=== PATIENT | female | born 1990 | race Asian ===

== ENCOUNTER → 2021-01-21 16:52 | Outpatient (ROUT) | payer OTHER, SELFPAY ==
[2021-01-21 17:15] LABS: GTT (PREG) 1 Hour PP 50gm Dose 124 mg/dL (76-139)
== END ==
PROVIDERS: Visit Provider Nurse Practitioner Obstetrics & Gynecology
DX: Z34.90 Encounter for supervision of normal pregnancy, unspecified, unspecified trimester (principal); Z13.1 Encounter for screening for diabetes mellitus; Z3A.16 16 weeks gestation of pregnancy
CPT/HCPCS: 82950

== ENCOUNTER → 2021-02-03 12:05 | Outpatient (CLI) | payer OTHER, SELFPAY ==
--- NOTE | 2021-02-03 | DI.US.S_ITS ---
PROCEDURE: US OB >= 14 WEEKS FETUS INDICATIONS: ANATOMY SCAN OUTSIDE/PRIOR DATING DATA: Last menstrual period (LMP): 09/22/20. LMP-based estimated date of delivery (CHAU): 07/09/21 . First dating scan (date and location): 02/03/21 . Estimated date of delivery (CA[facility]) from first dating scan: 06/28/21 . TECHNIQUE: Real-time scanning was performed of the fetus, with image documentation and biometric measurements. Endovaginal scanning: Not needed COMPARISON: None. FINDINGS: General: A single living intrauterine gestation is present. Presentation: Transverse head left. Placenta: Placental position is posterior , without previa. Amniotic fluid index: 13.6 cm, normal range is 5-24 cm. heart rate: 158 beats per minute. Maternal cervical canal: 3.8 cm long. Normal lower limit is 2.5 cm. biometrics: Biparietal diameter: 4.5 cm, 19 weeks 3 days Head circumference: 16.6 cm, 19 weeks 2 days Abdominal circumference: 13.5 cm, 19 weeks 0 days Femur length: 3.0 cm, 19 weeks 2 days Estimated gestational age from initial scan: Not applicable Composite gestational age from present scan: 19 weeks Estimated weight and percentile: 276 g, 45th percentile. Measurement variability for biometric dating: +/- 7 days from 14 weeks to 15 weeks 6 days gestation, +/- 10 days from 16 weeks to 21 weeks 6 days gestation, +/- 2 weeks from 22 weeks to 27 weeks 6 days gestation, +/- 3 weeks for 28 weeks gestation or later. weight reference: 4500 g or EFW >90/95% is considered macrosomia or large for gestational age. EFW <10% is small for gestational age. EFW 5% or less is considered intra-uterine growth restriction. Anatomic survey: Neuro: Ventricles are non-dilated at less than 10 mm. Cisterna magna is normal at 3-11 mm. Cerebellum is normal in size and morphology. Nuchal skin fold: Normal at less than 6 mm between 14-21 weeks gestational age. Face: Nose and lips, facial profile are normal. Spine: No evidence for spina bifida. Heart: 4-chambered heart is present, with normal ventricular outflow tracts. Diaphragm: Diaphragm is intact. Stomach: Left-sided stomach is present. Kidneys: No hydronephrosis. Normal is less than 5 mm in 2nd trimester, less than 7 mm in 3rd trimester. Cord: 3-vessel cord has orthotopic insertion. Bladder: Normal in size. Extremities: All 4 extremities identified. IMPRESSION: 19 week 2 day gestational age with delivery date projected to be centered on 07/08/21, +/-10 days. Normal survey of anatomy. Current presentation is transverse, head to maternal left. Dictated by: Delfino Mondragon M.D. on 02/03/2021 at 14:44 Approved by: Delfino Mondragon M.D. on 02/03/2021 at 14:47
== END ==
PROVIDERS: Referring Provider Nurse Practitioner Obstetrics & Gynecology; Visit Provider Nurse Practitioner Obstetrics & Gynecology
DX: Z36.89 Encounter for other specified antenatal screening (principal); Z3A.19 19 weeks gestation of pregnancy
CPT/HCPCS: 76811

== ENCOUNTER → 2021-03-25 15:59 | Outpatient (CLI) | payer OTHER, SELFPAY ==
[2021-03-25 18:09] LABS: Add Manual Diff / Slide Review NO; Basophils Absolute Auto 0 /uL (0-100); Basophils Percent Auto 0.2 % (0-2); Eosinophils Absolute Auto 200 /uL (0-450); Eosinophils Percent Auto 1.3 % (2-4); Hematocrit 33.7 % (36-46); Hemoglobin 11.3 g/dL (12.0-16.0); Lymphocytes Absolute Auto 1700 /uL (1100-4500); Lymphocytes Percent Auto 14.2 % (25-40); Mean Corpuscular HGB Conc 33.6 % (30-36); Mean Corpuscular Volume 92.4 fL (80-100); Monocytes Absolute Auto 600 /uL (0-900); Monocytes Percent Auto 5.2 % (3-14); Neutrophils Absolute Auto 9500 /uL (1500-7000); Neutrophils Percent Auto 79.1 % (50-75); Platelet Count 198 X10^3/uL (150-400); Red Blood Cell Count 3.65 X10^6/uL (4.0-5.2); Red Cell Distribution Width 13.4 % (11.6-14.8)
[2021-03-25 18:32] LABS: GTT (PREG) 1 Hour PP 50gm Dose 116 mg/dL (76-139)
== END ==
PROVIDERS: PCP Nurse Practitioner Obstetrics & Gynecology; Referring Provider Nurse Practitioner Obstetrics & Gynecology; Visit Provider Nurse Practitioner Obstetrics & Gynecology
DX: Z34.90 Encounter for supervision of normal pregnancy, unspecified, unspecified trimester (principal); Z13.1 Encounter for screening for diabetes mellitus; Z3A.26 26 weeks gestation of pregnancy
CPT/HCPCS: 36415; 82950; 85025

== ENCOUNTER → 2021-06-02 20:21 | Outpatient (ROUT) | payer OTHER, SELFPAY | PROVIDERS: PCP Nurse Practitioner Obstetrics & Gynecology; Visit Provider Nurse Practitioner Obstetrics & Gynecology | DX: Z34.90 Encounter for supervision of normal pregnancy, unspecified, unspecified trimester (principal); Z36.85 Encounter for antenatal screening for Streptococcus B; Z3A.36 36 weeks gestation of pregnancy | CPT/HCPCS: 87081 ==

== ENCOUNTER 2021-07-05 21:18 | Inpatient (IN) | payer OTHER, SELFPAY ==
--- NOTE | 2021-07-05 21:28 | P.HPOB_ITS ---
OB HPI Date/Time Date of admission: 07/05/21 Date Patient Seen: 07/05/21 Time Patient Seen: 21:28 History of Present Condition Chief complaint: : 2 Para: 1 Estimated Date of Delivery: 06/28/21 Estimated Gestational Age (weeks): 41 Narrative: Judy Scott is a 31 year old female at 41 weeks 0 days by LMP and first trimester US. Contractions began early this morning, occurring every 10 minutes. Contractions increased in frequency and intensity around 2030. + FM, no LOF or VB. Coping well and desires low intervention unmedicated . Uncomplicated care with CNM. History of Present care: good care, initiated at week # (8), number of visits (12) and pounds weight gain (40) Dating criteria: LMP confirmed by 1st trimester US Ultrasounds: normal mid trimester US Obstetrical complications: none Medical complications: none Preadmission Labs Blood type: A (+) positive -: Antibody screen: negative, GBS status: negative, HBsAG: negative, HIV: negative and RPR/VDLR: negative -: Chlamydia screen: not detected and Gonorrhea screen: not detected -: Rubella: immune HCT: 33.7 HCAB: negative 1 hr GTT: 116 Prior (ies) History: NSVB @ 40 weeks 3 days 12/14/17 Evaluation Evaluation Baseline heart rate: 155 Variability: Moderate (11-25) monitor accelerations: Present Monitor Decelerations: Absent Contraction Frequency (minutes): 4 Uterine Contraction Intensity: Strong/Firm Status: Category l Cervical dilation (cm): 7 Cervical effacement (%): 80 station: -3 [facility] Medical History (Updated 07/05/21 @ 22:13 by Larisa Jacobs CNM) Hemorrhoids Surgical History (Updated 07/05/21 @ 22:13 by Larisa Jacobs CNM) H/O ovarian cystectomy Meds Home Medications and Allergies Home Medications Medication Instructions Recorded Confirmed Type vits no.60-ferrous 1 tab BID 07/05/21 07/05/21 History fumarate 27 mg iron-folic acid 1 mg tablet Allergies Allergy/AdvReac Type Severity Reaction Status Date / Time No Known Drug Allergies Allergy Verified 07/05/21 22:25 Review of Systems Review of Systems ROS: Yes All systems reviewed with the patient and are negative except as otherwise documented Exam Vital Signs (past 8 hours): BP 145/78, T 97.6F, HR 86 bpm Resp Effort & Inspection: normal respiratory effort Auscultation: clear to auscultation bilaterally Cardio Rate: regular rate Rhythm: regular rhythm Heart Sounds: S1 normal and S2 normal Presentation: vertex Assessment and Plan Assessment and Plan Assessment and Plan narrative: A: Late term primipara active labor Elevated BP without diagnosis of hypertension No indication for GBS prophylaxis FHR Cat I P: Admit to L&D. Will draw pre-ecclapmsia panel with admission labs for elevated BP readings on admission. Intermittent auscultation per protocol. TENS unit provided for analgesia, will provide labor support as needed. Plan to reassess in 4 hours.
[2021-07-05 23:07] LABS: Add Manual Diff / Slide Review NO; Basophils Absolute Auto 100 /uL (0-100); Basophils Percent Auto 0.5 % (0-2); Eosinophils Absolute Auto 100 /uL (0-450); Eosinophils Percent Auto 1.3 % (2-4); Hematocrit 34.4 % (36-46); Hemoglobin 11.3 g/dL (12.0-16.0); Lymphocytes Absolute Auto 1600 /uL (1100-4500); Lymphocytes Percent Auto 14.4 % (25-40); Mean Corpuscular HGB Conc 32.8 % (30-36); Mean Corpuscular Hemoglobin 27.3 PG (26-34); Mean Corpuscular Volume 83.3 fL (80-100); Monocytes Absolute Auto 800 /uL (0-900); Monocytes Percent Auto 7.1 % (3-14); Neutrophils Absolute Auto 8400 /uL (1500-7000); Neutrophils Percent Auto 76.7 % (50-75); Platelet Count 200 X10^3/uL (150-400); Red Blood Cell Count 4.13 X10^6/uL (4.0-5.2); Red Cell Distribution Width 16.6 % (11.6-14.8); White Blood Cell Count 10.9 X10^3/uL (4.5-11.0)
[2021-07-05 23:17] LABS: Aspartate Aminotransferase 35 IU/L (14-36); BUN Creatinine Ratio 17.7 (6-22); Blood Urea Nitrogen 11 mg/dL (7-17); Estimated Glomerular Filt Rate > 60.0 mL/min (>60); Uric Acid 4.3 mg/dL (2.5-6.2)
[2021-07-05 23:29] VITALS: BP 131/76
[2021-07-05 23:31] LABS: COVID19 - ADMIT (NP swab/PCR) Negative (Negative)
--- NOTE | 2021-07-06 02:35 | PM.OBPRVD ---
Events: Meconium Stained Fluid Labor & Delivery Delivery date: 07/06/21 Intrapartal Events: None Cervical ripening method: none Induction method: none Delivery monitor: external FHT and external uterine Route of delivery: Episiotomy description: None L&D Laceration Description: None Estimated blood loss (mL): 325 Anesthesia Type: None Narrative: Judy labored in a variety of positions. Had spontaneous urge to push with bearing down efforts at 0130. FHT remained reassuring by intermittent auscultation throughout second stage. Requested nitrous oxide for pain management, provided adequate pain relief during pushing. Delivery of vigorous male at 0213, membranes ruptured with delivery of head, light meconium-stained fluid. No nuchal cord, shoulders delivered with ease, no additional maneuvers needed. PORFIRIO with left compound hand, manually reduced. [place] placed skin to skin, Apgars 8/9. After slowing of pulsations and signs of placental separation, cord double cut and clamped by SNM. Gentle cord traction and IV Pitocin per protocol for AMTSL, delivery of intact [place] presentation placenta at 0218 with three vessel cord. Perineum intact. QBL 325. Judy and baby left skin to skin and in stable condition as I left the room. Baby 1: Infant gender: Male Presentation: vertex Position: Right Occiput Anterior (with compound left hand, manually reduced) Placenta delivery description: Spontaneous Cord Vessel Description: 3 Vessels score (1 min): 8 score (5 min): 9 weight: 3.456 kg Plan for aftercare: Routine care
[2021-07-06] MEDS: ACETAMINOPHEN 325 MG TABLET 650 MG PO (03:01)
[2021-07-06] MEDS: KETOROLAC 30 MG/ML VIAL IV (03:01)
--- NOTE | 2021-07-06 15:09 | PM.OBDS.1 ---
Discharge Providers Provider Date of admission: 07/05/21 21:18 Discharge Date: 07/06/21 Primary care physician: Larisa Jacobs CNM Consults: 07/07/21 02:34 Consult to Academic Success Coordinator Routine Comment: Discharge provider: Larisa Jacobs CNM Summary Hospital Course Date Patient Seen: 07/06/21 Time Patient Seen: 15:09 Diagnoses: o80 Hospital Course: 13 hours s/p NSVBShila Kim is voiding, ambulating and independently. Tolerating a general diet. Denies pain and declines PO pain medication. Bleeding is decreasing without clots. Eager for discharge to home MAAME. remains present and supportive. Peripartum Data Delivery Method: Natural Vaginal Laceration Description: None complications: none [place] 1: Gender: Male Disposition of : home Discharge Diagnosis (1) Encounter for full-term uncomplicated delivery: Start Date: 07/06/21 Start Time: 02:13 Status: Acute Status at Discharge Cognitive/behavioral status at discharge: oriented and calm Functional status at discharge: independent ambulation Time Spent with Patient Time attestation: Total time spent providing and/or coordinating discharge services: Time spent: Less than 30 minutes Objective Labs Result Diagrams: 07/05/21 22:57 07/05/21 22:57 Labs: Laboratory Results - last 24 hr 07/05/21 07/05/21 07/05/21 22:29 22:57 22:57 WBC 10.9 RBC 4.13 Hgb 11.3 L Hct 34.4 L MCV 83.3 MCH 27.3 MCHC 32.8 RDW 16.6 H Plt Count 200 Neut % (Auto) 76.7 H Lymph % (Auto) 14.4 L [place] % (Auto) 7.1 Eos % (Auto) 1.3 L Baso % (Auto) 0.5 Neut # (Auto) 8400 H Lymph # (Auto) 1600 [place] # (Auto) 800 Eos # (Auto) 100 Baso # (Auto) 100 BUN Creatinine Estimated GFR BUN/Creatinine Ratio Uric Acid AST SARS-CoV-2 (PCR) Negative Blood Type A Positive Antibody Screen Negative 07/05/21 22:57 WBC RBC Hgb Hct MCV MCH MCHC RDW Plt Count Neut % (Auto) Lymph % (Auto) [place] % (Auto) Eos % (Auto) Baso % (Auto) Neut # (Auto) Lymph # (Auto) [place] # (Auto) Eos # (Auto) Baso # (Auto) BUN 11 Creatinine 0.62 Estimated GFR > 60.0 BUN/Creatinine Ratio 17.7 Uric Acid 4.3 AST 35 SARS-CoV-2 (PCR) Blood Type Antibody Screen Exam Vital Signs (past 8 hours): BP 126/77mmHg, HR 101bpm, T 36.7C Temporal Other: Fundus firm @ u-1, lochia moderate, no clots. Perineum intact with minimal edema. Discharge Plan Discharge Plan Patient Disposition: Home Discharge orders & Medications Prescriptions: Continued PNV Folic Acid + Iron 27 mg iron- 1 mg Tablet 1 tab BID RF: 0 Follow up/Referrals: Larisa Jacobs CNM [Primary Care Provider] - (Follow-up by telehealth 07/19/21 @ 0930 Follow-up in office 08/16/21 @ 1000) Diet/Activity/Treatments Diet: Regular Activity: pelvic rest x 6 weeks Skin/Wound/Dressing Care Report to your healthcare provider any signs of infection, such as:: chills, fever, increased pain, unusual drainage and unusual redness Visit Report/Discharge Packet Instructions: Depression Discharge Data Primary Care Provider: Larisa Jacobs
[2021-07-06 22:11] VITALS: BP 129/85; PULSE 65; RESP 16; TEMP 36.6
== END 2021-07-06 23:28 | disposition home or self-care (01) | DRG 805 ==
PROVIDERS: Admitting Provider Nurse Practitioner Obstetrics & Gynecology; PCP Nurse Practitioner Obstetrics & Gynecology; Referring Provider Nurse Practitioner Obstetrics & Gynecology; Visit Provider Nurse Practitioner Obstetrics & Gynecology
DX: O48.0 Post-term pregnancy (principal); O99.42 Diseases of the circulatory system complicating childbirth; Z37.0 Single live birth; R03.0 Elevated blood-pressure reading, without diagnosis of hypertension; Z3A.41 41 weeks gestation of pregnancy; O77.0 Labor and delivery complicated by meconium in amniotic fluid; O32.2XX0 Maternal care for transverse and oblique lie, not applicable or unspecified; Z20.822 Contact with and (suspected) exposure to COVID-19
CPT/HCPCS: 36415; 84450; 84550; 85025; 86850; 86900; 86901; 87635; C9803; G0379; J1885

== ENCOUNTER → 2022-11-11 | Outpatient (CLI) | payer OTHER, SELFPAY ==
--- NOTE | 2022-11-11 | DI.US.S_ITS ---
PROCEDURE: US OB >= 14 WEEKS FETUS INDICATIONS: ANATOMY SCAN OUTSIDE/PRIOR DATING DATA: Last menstrual period (LMP): 06/24/2022. LMP-based estimated date of delivery (CHAU): 03/31/2023. TECHNIQUE: Real-time scanning was performed of the fetus, with image documentation and biometric measurements. COMPARISON: [facility], , OB >= 14 WEEKS FETUS, 02/03/2021, 12:27. FINDINGS: General: A single living intrauterine gestation is present. Presentation: Breech. Placenta: Placental position is fundal, without previa. Amniotic fluid index: 14.4 cm, normal range is 5-24 cm. Single deepest vertical pocket is 5 cm. heart rate: 143 beats per minute. Maternal cervical canal: 4.3 cm long. Normal lower limit is 2.5 cm. biometrics: Biparietal diameter: 4.5 cm, 19 weeks 5 days Head circumference: 16.8 cm, 19 weeks 3 days Abdominal circumference: 14.7 cm, 20 weeks 0 days Femur length: 3 cm, 19 weeks 2 days Clinically estimated gestational age: 20 weeks 0 days Composite gestational age from present scan: 19 weeks 4 days Estimated weight and percentile: 306 g, 28th percentile Anatomic survey: Neuro: Ventricles are non-dilated at less than 10 mm. Cisterna magna is normal at 3-11 mm. Cerebellum is normal in size and morphology. Nuchal skin fold: Normal at less than 6 mm between 14-21 weeks gestational age. Face: Nose and lips, facial profile are normal. Spine: No evidence for spina bifida. Heart: 4-chambered heart is present, with normal ventricular outflow tracts. Diaphragm: Diaphragm is intact. Stomach: Left-sided stomach is present. Kidneys: No hydronephrosis. Normal is less than 5 mm in 2nd trimester, less than 7 mm in 3rd trimester. Cord: 3-vessel cord has orthotopic insertion. Bladder: Normal in size. Extremities: All 4 extremities identified. IMPRESSION: 1. [place] living intrauterine at 19 weeks 4 days based on today's ultrasound. Fetus is in the 28th percentile for weight. 2. Normal placenta and amniotic fluid. 3. Normal and complete anatomic survey. We strive to produce accurate, complete, and clear reports of imaging services. To assist us in improving patient care, this report was composed using standard report templates and voice recognition software. Therefore, it may contain abnormal punctuation, insertions and/or omissions. Occasional wrong-word or sound-alike substitutions may occur. Though we review the report and make efforts to correct it, we do recommend that the report be read carefully in proper context to recognize any text inaccuracies. Dictated by: Yimi Brand M.D. on 11/11/2022 at 13:25 Approved by: Yimi Brand M.D. on 11/11/2022 at 13:35
== END ==
LOC: US 12:12
PROVIDERS: PCP Nurse Practitioner Obstetrics & Gynecology; Referring Provider Nurse Practitioner Obstetrics & Gynecology; Visit Provider Nurse Practitioner Obstetrics & Gynecology
DX: Z36.89 Encounter for other specified antenatal screening (principal); Z3A.19 19 weeks gestation of pregnancy
CPT/HCPCS: 76811